=== PATIENT | female | born 1950 | race Caucasian/White ===

== ENCOUNTER → 2016-09-17 | Outpatient (CLI) | payer BC ==
[~2016-09-17] MED LIST: CIPR-255 PO; FLUO1TAB12 PO; LEVO50TA PO
--- NOTE | 2016-09-17 15:09 | DIAGNOSTIC IMAGING REPORT ---
LEFT FEMUR 4 VIEWS CLINICAL HISTORY: Left femur pain status post trauma COMPARISON: None. DISCUSSION: No fractures or dislocations are visualized. IMPRESSION: No fractures identified. Electronically signed by: Gwyn Garcia M.D. 09/17/2016 3:08 PM Dictated Date/Time: 09/17/2016 3:07 PM
--- NOTE | 2016-09-17 15:11 | DIAGNOSTIC IMAGING REPORT ---
LEFT KNEE 1 OR 2 VIEWS ROUTINE CLINICAL HISTORY: LEFT FOOT PAIN, LEFT KNEE INJURY pain COMPARISON: None. DISCUSSION: The bones and joint spaces appear intact. There is no evidence of fracture, dislocation or bony disease. There is no evidence for soft tissue swelling. IMPRESSION: Negative study. Electronically signed by: Teofilo Mishra M.D. 09/17/2016 3:10 PM Dictated Date/Time: 09/17/2016 3:10 PM
--- NOTE | 2016-09-17 15:12 | DIAGNOSTIC IMAGING REPORT ---
LEFT FOOT MIN 3 VIEWS ROUTINE CLINICAL HISTORY: LEFT FOOT PAIN, LEFT KNEE INJURY trauma COMPARISON: None. DISCUSSION: Bunion deformity distal first metatarsal. Mild hallux valgus configuration. Mild degenerative change of the interphalangeal joints. No evidence for acute bony pathology. Cortical margins are intact. There is no evidence for soft tissue swelling. IMPRESSION: Moderate degenerative change. No acute bony abnormality. Electronically signed by: Teofilo Mishra M.D. 09/17/2016 3:11 PM Dictated Date/Time: 09/17/2016 3:10 PM
== END | disposition home or self-care (01) ==
LOC: C.RAD 14:12
PROVIDERS: ATTEND Family Medicine
DX: S69.92XA Unspecified injury of left wrist, hand and finger(s), initial encounter (principal); X58.XXXA Exposure to other specified factors, initial encounter; M79.672 Pain in left foot

== ENCOUNTER → 2016-10-07 | Outpatient (CLI) | payer BC | END | disposition home or self-care (01) | LOC: C.MAMM 15:28 | PROVIDERS: ATTEND Family Medicine | DX: Z78.0 Asymptomatic menopausal state (principal); M85.89 Other specified disorders of bone density and structure, multiple sites ==

== ENCOUNTER → 2017-08-03 | Day surgery (SDC) | payer BC ==
[2017-07-31 08:24] VITALS: Ht 176.5 cm; Wt 86.4 kg
[~2017-08-03] VITALS: Ht 176.5 cm; Wt 86.4 kg
[~2017-08-03] MED LIST changes: +500ML BSSPLUS 0.5ML EPI1:1000 IRRIG ONE; +ACET-1256 PO; +ACETAMINOPHEN 325 MG TAB PO PRN; +ATROPINE SULFATE 0.1 MG/ML 5ML SYR IV PRN; +BSS FLUSH ONE; +BUPIVACAINE HCL 0.75% 10 ML AMP/VIAL ONE; +CEFAZOLIN SOD 1 GM VIAL ONE; -CIPR-255 PO; +DEXAMETHASONE SOD INJ 4 MG/ML VIAL ONE; +EpHEDrine SULFATE INJ 50 MG/ML AMP IV PRN; +EpINEphrine INJ 1MG/ML AMP 1 MG/ML AMP ONE; +FENTANYL CITRATE INJ 50 MCG/1 ML 2 ML VIAL ONE; -FLUO1TAB12 PO; +FLUO40CA8 PO; +HYALURONIDASE HUMAN 150 UNIT/ML INJ ONE; +INDOCYANINE GREEN 25 MG/10 ML ONE; +LACTATED RINGER'S 1000ML 500 ML IV SCH; +LIDOCAINE HCL 2% 2 ML VIAL (20MG/ML) ONE; +MIDAZOLAM HCL 1 MG/ML 2ML VIAL ONE; +NEOMYCIN/POLYMYX/DEXAMETH OP OINT PER APP CHARGE ONE; +OCUCOAT 1 ML SOLN IO ONE; +ONDANSETRON INJ 2 MG/ML 2 ML VIAL ONE; +POVIDONE-IODINE OP SOLN (SURGERY CNTR CHARGING ONLY) ONE; +PROPARACAINE 0.5% OP SOLN PER DROP CHARGE OPL SCH; +PROPOFOL IV EMULSION 10 MG/ML 20 ML VIAL IV ONE; +RANI150T85 PO; +TIMOLOL MALEATE 0.5% OP SOLN PER DROP CHARGE ONE; +TRIAMCINOLONE ACETONIDE OPHTH 40 MG/ML VIAL STERILE IO ONE
[2017-08-03] MEDS: PHENYLEPHRINE HCL 2.5% OP SOLN PER DROP CHARGE OPL SCH ×2 (06:43→06:48)
[2017-08-03] MEDS: TROPICAMIDE 1% OP SOLN PER DROP CHARGE OPL SCH ×2 (06:44→06:49)
--- NOTE | 2017-08-03 07:03 | History & Physical Bridge - [place] ---
H&P Re-Evaluation Bridge Note: Pt has a macular hole left eye and is having vitrectomy left eye. I have examined the patient, reviewed the History & Physical and in the interval since the performance of the History & Physical I have noted the following changes of clinical significance: No changes noted
--- NOTE | 2017-08-03 08:09 | [facility] Operative Report ---
Operative Report Date of Service Aug 03, 2017. Operative Report PREOPERATIVE DIAGNOSIS: Macular hole, left eye. ICD10 CODE: H35.342 POSTOPERATIVE DIAGNOSIS: same. PROCEDURE: 1. Pars plana vitrectomy, 23 gauge. 2. Membrane peeling of the internal limiting membrane. 3. Fluid-air exchange. 4. Air-gas exchange w/ SF6 20 %. All to the left eye. CPT CODE: 73215 SURGEON: Floyd Menjivar D.O. COMPLICATIONS: None. ESTIMATED BLOOD LOSS: None. SPECIMENS: None. ANESTHESIA: Retrobulbar block and MAC. INDICATIONS FOR PROCEDURE: The patient has a macular hole that is visually significant. Vitrectomy surgery is indicated to decrease risk of vision loss and potentially improve vision. CONSENT: The risks, benefits and alternatives were discussed with the patient including but not limited to decreased visual acuity, failure to achieve desired results, loss of the eye, infection, pain, glaucoma, lens changes, retinal tears, retinal detachment, the need for more procedures, drooping of the eyelid, blindness, and double vision. The patient is aware of risks and consents to the surgery. Consent is signed and on the chart. OPERATION AND FINDINGS: The patient was brought to the operating room where the patient was identified by name, date, and medical record number. The surgical site was confirmed with the informed written consent. The patient was sedated by the anesthesiology team after which a 50:50 mixture of 2% lidocaine and 0.75% bupivacaine with hyaluronidase was administered in a standard retrobulbar fashion. A total of 4 ml was administered without difficulty. The patient was then prepped and draped in the usual sterile manner for retinal surgery. A wire lid speculum was placed and an Cory 23-gauge trocar cannula system was employed. The inferior temporal trocar cannula was first placed in an angled fashion 3.75mm posterior to the surgical limbus and the infusion cannula was inserted into this cannula after which the intravitreal position was verified prior to turning the infusion on. Two more trocar cannulas were then inserted in an angled fashion, one in the superior temporal, and one in the superior nasal quadrant both 3.75mm posterior to the surgical limbus. A light pipe and vitrector were then introduced into the eye and the BIOM wide angle viewing system was brought into place. Standard core vitrectomy was performed and the vitreous was insured to be totally detached from the posterior pole with the aid of the vitrector. Next 0.05ml of indocyanine green was placed over the macular surface to stain the internal limiting membrane. This was washed from the eye after 10 seconds. At this point a flat contact lens was placed on the surface of the eye and a flex scraper and ILM forceps were then used to gently peel the internal limiting membrane and overlying epiretinal membrane surrounding the macular hole without difficulty. At this point scleral depression was performed for 360 degrees and no retinal tears or detachments were noted. A soft tip cannula was used to perform a fluid- air exchange. Next, SF6 20% was injected in through the infusion cannula for a complete gas fill of the eye. The trocar cannulas were then removed and found to be air tight. The intraocular pressure was found to be within normal limits by palpation and subconjunctival injections of Kefzol and dexamethasone were administered inferiorly and superiorly. The wire lid speculum was removed. Maxitrol and timolol were applied to the surface of the eye. A light patch and shield were taped over the surface of the eye and the patient left the Operating Room in stable condition having tolerated the procedure well. DISPOSITION: A gas bracelet was placed on the patients wrist. The patient was instructed to maintain a face down position overnight. The patient is to call immediately if there are any problems overnight. I attest to the content of the Intraoperative Record and any orders documented therein. Any exceptions are noted below.
[2017-08-03 08:11] VITALS: TEMP 36.4
--- NOTE | 2017-08-03 08:11 | Discharge Instructions-SurgCtr ---
Discharge Instructions Date of Service Aug 03, 2017. Visit Reason for Visit: Left Eye Macular Hole Discharge Discharge Diagnosis / Problem: same Discharge Goals Goal(s): Improve function Activity Recommendations Activity Limitations: per Instructions/Follow-up section Anesthesia . Post Anesthesia Instructions: If you have had General Anesthesia or IV Sedation: * Do not drive today. * Resume driving when surgeon permits. * Do not make important decisions or sign legal documents today. * Call surgeon for: 1. Temperature elevations greater than 101 degrees F. 2. Uncontrollable pain. 3. Excessive bleeding. 4. Persistent nausea and vomiting. 5. Medication intolerance (nausea, vomiting or rash). * For nausea and vomiting use only clear liquids such as: tea, soda, bouillon until nausea subsides, then gradually increase diet as tolerated. * If you have any concerns or questions, call your surgeon's office. If physician is unavailable and it is an emergency, call 911 or go to the nearest emergency room. . Instructions / Follow-Up Instructions / Follow-Up * May take Tylenol if needed for discomfort. * Do NOT lay flat on back and position head as follows: Face forward, chin down , right side down; Sleep on right side. * Do NOT remove green bracelet until instructed to do so by your surgeon and follow these precautions: * No air travel * No travel above 2500 feet * No nitrous oxide (N2O). * Do NOT remove eye shield. * NO straining, heavy lifting (>15 pounds) or bending below waist. * Avoid getting water or soap directly into operative eye. * Do NOT rub eye. If you experience increasing eye pain not relieved by medication, please contact us immediately at [phone]. If you are unable to reach someone at the above number, call [phone] and ask to speak with the EYE DOCTOR STAFF READINESS OFFICER. Inform them that you are a Dr. Menjivar patient who had recent surgery. Diet Recommendations Home Diet: resume previous diet Procedures Procedures Performed: Left Eye 23 Gauge Vitrectomy, Membrane Peeling, SF6 gas instillation Pending Studies Studies pending at discharge: no Medical Emergencies . Who to Call and When: Medical Emergencies: If at any time you feel your situation is an emergency, please call 911 immediately. . Non-Emergent Contact Non-Emergency issues call your: [facility] . . "Provider Documentation" section prepared by Floyd Menjivar. .
--- NOTE | 2017-08-03 08:13 | Anesthesia Progress Nt - [facility] ---
Anesthesia Post Op Note Date & Time Aug 03, 2017 at 08:13 Vital Signs Pain Intensity: 3 Vital Signs Past 12 Hours Date Time Temp Pulse Resp B/P (MAP) Pulse Ox O2 Delivery O2 Flow Rate FiO2 08/03/17 06:28 36.4 74 18 128/75 (92) 98 Room Air Notes Mental Status: alert / awake / arousable, participated in evaluation Pt Amnestic to Procedure: Yes Nausea / Vomiting: adequately controlled Pain: adequately controlled Airway Patency, RR, SpO2: stable & adequate BP & HR: stable & adequate Hydration State: stable & adequate Anesthetic Complications: no major complications apparent
[2017-08-03 08:40] VITALS: BP 119/74; PULSE 66; O2SAT 96
== END | disposition home or self-care (01) ==
LOC: X.SURG 06:10
PROVIDERS: ATTEND Ophthalmology
DX: H35.342 Macular cyst, hole, or pseudohole, left eye (principal); K21.9 Gastro-esophageal reflux disease without esophagitis; E03.9 Hypothyroidism, unspecified; F32.9 Major depressive disorder, single episode, unspecified; Z88.2 Allergy status to sulfonamides; Z82.49 Family history of ischemic heart disease and other diseases of the circulatory system; Z83.3 Family history of diabetes mellitus

== ENCOUNTER 2017-11-09 20:08 | Emergency (ER) | payer BC ==
[~2017-11-09] VITALS: Ht 175.3 cm; Wt 88.3 kg
[~2017-11-09 20:08] MED LIST changes: -500ML BSSPLUS 0.5ML EPI1:1000 IRRIG ONE; -ACETAMINOPHEN 325 MG TAB PO PRN; -ATROPINE SULFATE 0.1 MG/ML 5ML SYR IV PRN; -BSS FLUSH ONE; -BUPIVACAINE HCL 0.75% 10 ML AMP/VIAL ONE; -CEFAZOLIN SOD 1 GM VIAL ONE; -DEXAMETHASONE SOD INJ 4 MG/ML VIAL ONE; -EpHEDrine SULFATE INJ 50 MG/ML AMP IV PRN; -EpINEphrine INJ 1MG/ML AMP 1 MG/ML AMP ONE; -FENTANYL CITRATE INJ 50 MCG/1 ML 2 ML VIAL ONE; -HYALURONIDASE HUMAN 150 UNIT/ML INJ ONE; -INDOCYANINE GREEN 25 MG/10 ML ONE; -LACTATED RINGER'S 1000ML 500 ML IV SCH; -LIDOCAINE HCL 2% 2 ML VIAL (20MG/ML) ONE; -MIDAZOLAM HCL 1 MG/ML 2ML VIAL ONE; -NEOMYCIN/POLYMYX/DEXAMETH OP OINT PER APP CHARGE ONE; -OCUCOAT 1 ML SOLN IO ONE; -ONDANSETRON INJ 2 MG/ML 2 ML VIAL ONE; -POVIDONE-IODINE OP SOLN (SURGERY CNTR CHARGING ONLY) ONE; -PROPARACAINE 0.5% OP SOLN PER DROP CHARGE OPL SCH; -PROPOFOL IV EMULSION 10 MG/ML 20 ML VIAL IV ONE; -TIMOLOL MALEATE 0.5% OP SOLN PER DROP CHARGE ONE; -TRIAMCINOLONE ACETONIDE OPHTH 40 MG/ML VIAL STERILE IO ONE
[2017-11-09 20:21] VITALS: TEMP 36.7; Ht 175.3 cm; Wt 88.3 kg
[2017-11-09] MEDS ORDERED: MECLIZINE HCL 25 MG TAB PO STA (21:07)
[2017-11-09] MEDS ORDERED: ONDANSETRON INJ 2 MG/ML 2 ML VIAL IV STA (21:07)
[2017-11-09] MEDS ORDERED: OPTIRAY 320 IV PRN (21:15)
[2017-11-09 21:23] LABS: BASO % 0.5 %; BASO ABS # 0.03 K/uL (0-0.2); EOS % 2.2 %; EOS ABS # 0.14 K/uL (0-0.5); HEMATOCRIT 41.3 % (37-47); IG# 0.01 K/uL (0.00-0.02); LYMPH % 27.3 %; LYMPH ABS # 1.75 K/uL (1.2-3.4); MEAN CELL VOLUME 96.9 fL (80-100); MEAN CORPUSCULAR HEMOGLOBIN 32.9 pg (25-34); MEAN CORPUSCULAR HGB CONC 33.9 g/dl (32-36); MEAN PLATELET VOLUME 11.6 fL (7.4-10.4); MONO % 10.6 %; MONO ABS # 0.68 K/uL (0.11-0.59); NEUT % 59.2 %; NEUT ABS # 3.81 K/uL (1.4-6.5); PLATELET COUNT 262 K/uL (130-400); RED CELL DISTRIBUTION WIDTH CV 13.5 % (11.5-14.5); RED CELL DISTRIBUTION WIDTH SD 47.8 fL (36.4-46.3); WHITE BLOOD COUNT 6.42 K/uL (4.8-10.8)
[2017-11-09 21:52] LABS: CALCIUM 9.3 mg/dl (8.5-10.1); CREATININE 0.95 mg/dl (0.60-1.20); POTASSIUM 3.9 mmol/L (3.5-5.1)
--- NOTE | 2017-11-09 22:41 | DIAGNOSTIC IMAGING REPORT ---
Brain MRA HISTORY: severe dizziness, headaches TECHNIQUE: 3-D [id number] MRA of the brain was performed without contrast. COMPARISON STUDY: None. FINDINGS: Visualized intracranial internal carotid arteries, distal vertebral arteries, and basilar artery are widely patent. There is no significant stenosis or occlusion seen within the bilateral ACAs, MCAs, or pcat instructor. Best seen on axial image 122 there is a 3 mm aneurysm extending posteriorly from the ophthalmic segment of the right internal carotid artery. IMPRESSION: 1. No significant stenosis or occlusion within the cerebral arteries. 2. 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 Electronically signed by: Gaudencio Aguirre M.D. 11/09/2017 10:40 PM Dictated Date/Time: 11/09/2017 10:35 PM
--- NOTE | 2017-11-09 22:49 | DIAGNOSTIC IMAGING REPORT ---
Brain MRI WITHOUT CONTRAST HISTORY: severe dizziness, headaches TECHNIQUE: Multiplanar multisequence MRI of the brain was performed without the use of contrast. COMPARISON STUDY: None. FINDINGS: There is no mass, hematoma, midline shift, or acute infarct. The paranasal sinuses are clear. The mastoid air cells are clear. The ventricles and sulci demonstrate mild age-related involutional changes. Scattered foci of T2 hyperintensity seen within the periventricular and subcortical white matter are nonspecific but suggestive of mild microvascular ischemic changes. The major vascular flow voids at the skull base are well-maintained. IMPRESSION: No acute intracranial abnormality. Scattered foci of T2 hyperintensity seen within the periventricular and subcortical white matter are nonspecific but favor microvascular ischemic change. Electronically signed by: Gaudencio Aguirre M.D. 11/09/2017 10:47 PM Dictated Date/Time: 11/09/2017 10:40 PM
[2017-11-09] MEDS ORDERED: IBUP-1050 PO (23:24)
--- NOTE | 2017-11-09 23:24 | DIAGNOSTIC IMAGING REPORT ---
NECK MRA HISTORY: severe dizziness, headaches TECHNIQUE: [id number] and gadolinium-enhanced MRA of the neck was performed both before and after the intravenous administration of contrast. All measurements were calculated based on NASCET criteria. COMPARISON STUDY: None. FINDINGS: The aortic arch and proximal great vessels are widely patent. There is no significant stenosis, occlusion, or dissection identified within the bilateral common carotid, internal carotid, or vertebral arteries. IMPRESSION: No significant stenosis, occlusion, or dissection identified within the carotid or vertebral arteries. Electronically signed by: Gaudencio Aguirre M.D. 11/09/2017 11:23 PM Dictated Date/Time: 11/09/2017 11:20 PM
[2017-11-10] MEDS ORDERED: LIDOCAINE HCL 1% 20 ML VIAL ONE (00:50)
[2017-11-10 02:26] LABS: CSF GLUCOSE 58 mg/dl (40-70); CSF TOTAL PROTEIN 31.4 mg/dl (15.0-45.0)
[2017-11-10] MEDS ORDERED: MECLIZINE HCL 25MG HOME PACK PO ONE (02:30)
[2017-11-10] MEDS ORDERED: MECL1TAB42 PO (02:32)
[2017-11-10 02:47] VITALS: BP 126/69; PULSE 72; O2SAT 100
--- NOTE | 2017-11-10 04:13 | EMERGENCY ROOM VISIT NOTE ---
History Report prepared by Ciarra: Jewell Walsh Under the Supervision of: Dr. Osmin Shaw M.D. First contact with patient: 20:49 Chief Complaint: VERTIGO Stated Complaint: VERTIGO,VOMITING,DIZZINESS,HEADACHES History of Present Illness The patient is a 67 year old female who presents to the Emergency Room with complaints of worsening vertigo that started yesterday. The patient states that she started experiencing headaches, dizziness, and pressure behind her ears 3 days ago. She does not recall doing anything out of the ordinary before her symptoms started. Since then, she notes that she has been having intermittent dizziness and headaches that occur in the morning and tend to go away an hour after taking Ibuprofen. The patient states she felt very queasy yesterday and called her PCP Dr. Stoner this morning because her symptoms were the worst they had been since their onset. She states that she was instructed to report to the ED. The patient reports that she is currently feeling dizzy and rates her headache pain a 5 out of 10. She reports that she has took Aleve prior to arrival to help her dizziness. The patient also complains of lightheadedness and nausea, and she notes she feels like the room is "spinning." She states her symptoms worsen with quick head movements and the act of lying down. 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 She notes she also has a history of "being a little unsteady on my feet." The patient states she is not currently taking blood thinners. Pt denies LOC, fevers, chills, diaphoresis, visual changes, neck pain, chest pain, breathing difficulties, vomiting, abdominal pain, back pain, melena, hematochezia, urinary symptoms, numbness, weakness, lymphadenopathy, rash, or other complaints. Source of History: patient Onset: 3 days ago Position: head Quality: other (vertigo) Timing: intermittent Modifying Factors (Worsening): movement (quick head movements, the act of lying down) Modifying Factors (Relieving): ibuprofen Associated Symptoms: + headache, + nausea Note: additional symptoms: dizziness, lightheadedness, pressure behind her ears Review of Systems See HPI for pertinent positives and negatives. A total of ten systems were reviewed and were otherwise negative. 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 (2) Depression Surgical Problems: (1) S/P cholecystectomy (2) S/P hysterectomy Family History No pertinent family history Social History Smoking Status: Never Smoker Marital Status: Housing Status: lives with family Current/Historical Medications Scheduled Fluoxetine Hcl (Prozac), 40 MG PO QAM Levothyroxine Sodium (Synthroid), 50 MCG PO QAM Ranitidine (Zantac), 150 MG PO BID Scheduled PRN Acetaminophen (Tylenol), 500 MG PO DAILY PRN for Pain Ibuprofen (Advil), 200-600 MG PO Q4H PRN for Pain or Fever Meclizine Hcl (Meclizine Hcl), 25 MG PO TID PRN for Dizziness Allergies Coded Allergies: Sulfa Drugs (Verified Allergy, Unknown, HIVES, 11/09/17) Physical Exam Vital Signs Date Time Temp Pulse Resp B/P (MAP) Pulse Ox O2 Delivery O2 Flow Rate FiO2 11/10/17 02:47 72 16 126/69 100 11/10/17 02:00 67 18 118/61 98 Room Air 11/10/17 01:49 81 11/10/17 00:15 79 16 129/71 98 Room Air 11/09/17 23:20 76 13/84 74 155/90 82 164/96 11/09/17 21:45 74 11/09/17 20:21 36.7 86 18 145/79 98 Room Air Physical Exam GENERAL: Awake, alert, well appearing, no distress HENT: Normocephalic, atraumatic. TM's normal. Oropharynx unremarkable. EYES: PERRL. EOMI. Normal conjunctiva. Sclera non-icteric. NECK: Supple. No nuchal rigidity. FROM. No bruit. RESPIRATORY: Breath sounds equal. No wheezes. No rhonchi. Normal respiratory effort. CARDIAC: Normal rate. Regular rhythm. No murmurs. No rubs. No JVD. GI: Soft, non distended. No tenderness to palpation. No rebound or guarding. No masses. RECTAL: Deferred. MUSCULOSKELETAL: No edema. No discoloration. Gross motor strength symmetric. Normal internal and external rotation in left hip. Slight weakness of right EHL. NEURO: Cranial nerves 2-12 grossly intact. Normal sensorium. No sensory or motor deficits noted. Speech normal. No pronator drift. Lateral nystagmus. Normal heel to severino. Normal rapid alternating movements. Positive [place]. SKIN: No rash or jaundice noted. LYMPH: No adenopathy. Medical Decision & Procedures ER Provider Diagnostic Interpretation: Radiology results as stated below per my review and radiologist interpretation: NECK MRA HISTORY: severe dizziness, headaches TECHNIQUE: [id number] and gadolinium-enhanced MRA of the neck was performed both before and after the intravenous administration of contrast. All measurements were calculated based on NASCET criteria. COMPARISON STUDY: None. FINDINGS: The aortic arch and proximal great vessels are widely patent. There is no significant stenosis, occlusion, or dissection identified within the bilateral common carotid, internal carotid, or vertebral arteries. IMPRESSION: No significant stenosis, occlusion, or dissection identified within the carotid or vertebral arteries. Electronically signed by: Gaudencio Aguirre M.D. 11/09/2017 11:23 PM Dictated Date/Time: 11/09/2017 11:20 PM Brain MRA HISTORY: severe dizziness, headaches TECHNIQUE: 3-D [id number] MRA of the brain was performed without contrast. COMPARISON STUDY: None. FINDINGS: Visualized intracranial internal carotid arteries, distal vertebral arteries, and basilar artery are widely patent. There is no significant stenosis or occlusion seen within the bilateral ACAs, MCAs, or power and recovery supervisor. Best seen on axial image 122 there is a 3 mm aneurysm extending posteriorly from the ophthalmic segment of the right internal carotid artery. IMPRESSION: 1. No significant stenosis or occlusion within the cerebral arteries. 2. 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 Electronically signed by: Gaudencio Aguirre M.D. 11/09/2017 10:40 PM Dictated Date/Time: 11/09/2017 10:35 PM Brain MRI WITHOUT CONTRAST HISTORY: severe dizziness, headaches TECHNIQUE: Multiplanar multisequence MRI of the brain was performed without the use of contrast. COMPARISON STUDY: None. FINDINGS: There is no mass, hematoma, midline shift, or acute infarct. The paranasal sinuses are clear. The mastoid air cells are clear. The ventricles and sulci demonstrate mild age-related involutional changes. Scattered foci of T2 hyperintensity seen within the periventricular and subcortical white matter are nonspecific but suggestive of mild microvascular ischemic changes. The major vascular flow voids at the skull base are well-maintained. IMPRESSION: No acute intracranial abnormality. Scattered foci of T2 hyperintensity seen within the periventricular and subcortical white matter are nonspecific but favor microvascular ischemic change. Electronically signed by: Gaudencio Aguirre M.D. 11/09/2017 10:47 PM Dictated Date/Time: 11/09/2017 10:40 PM Laboratory Results 11/09/17 21:12 Red Blood Count 4.26, Mean Corpuscular Volume 96.9, Mean Corpuscular Hemoglobin 32.9, Mean Corpuscular Hemoglobin Concent 33.9, Mean Platelet Volume 11.6, Neutrophils (%) (Auto) 59.2, Lymphocytes (%) (Auto) 27.3, Monocytes (%) (Auto) 10.6, Eosinophils (%) (Auto) 2.2, Basophils (%) (Auto) 0.5, Neutrophils # (Auto ) 3.81, Lymphocytes # (Auto) 1.75, Monocytes # (Auto) 0.68, Eosinophils # (Auto ) 0.14, Basophils # (Auto) 0.03 11/09/17 21:12 Test 11/09/17 21:12 11/10/17 02:03 White Blood Count 6.42 K/uL (4.8-10.8) Red Blood Count 4.26 M/uL (4.2-5.4) Hemoglobin 14.0 g/dL (12.0-16.0) Hematocrit 41.3 % (37-47) Mean Corpuscular Volume 96.9 fL (80-100) Mean Corpuscular Hemoglobin 32.9 pg (25-34) Mean Corpuscular Hemoglobin Concent 33.9 g/dl (32-36) Platelet Count 262 K/uL (130-400) Mean Platelet Volume 11.6 fL (7.4-10.4) Neutrophils (%) (Auto) 59.2 % Lymphocytes (%) (Auto) 27.3 % Monocytes (%) (Auto) 10.6 % Eosinophils (%) (Auto) 2.2 % Basophils (%) (Auto) 0.5 % Neutrophils # (Auto) 3.81 K/uL (1.4-6.5) Lymphocytes # (Auto) 1.75 K/uL (1.2-3.4) Monocytes # (Auto) 0.68 K/uL (0.11-0.59) Eosinophils # (Auto) 0.14 K/uL (0-0.5) Basophils # (Auto) 0.03 K/uL (0-0.2) RDW Standard Deviation 47.8 fL (36.4-46.3) RDW Coefficient of Variation 13.5 % (11.5-14.5) Immature Granulocyte % (Auto) 0.2 % Immature Granulocyte # (Auto) 0.01 K/uL (0.00-0.02) Erythrocyte Sedimentation Rate 8 mm/hr (0-21) Prothrombin Time 10.0 SECONDS (9.0-12.0) Prothromb Time International Ratio 1.0 (0.9-1.1) Activated Partial Thromboplast Time 26.0 SECONDS (21.0-31.0) Partial Thromboplastin Ratio 1.0 Anion Gap 8.0 mmol/L (3-11) Est Creatinine Clear Calc Drug Dose 66.2 ml/min Estimated GFR () 70.8 Estimated GFR (Non- 61.1 BUN/Creatinine Ratio 21.2 (10-20) Calcium Level 9.3 mg/dl (8.5-10.1) Lyme Disease IgG Antibody NEG (NEG) Lyme Disease IgM Antibody NEG (NEG) CSF Color COLORLESS CSF Appearance CLEAR CSF WBC 2 /uL (0-5) CSF RBC 4 /uL (0) CSF Xanthrochromic NO XANTHOCHROMIA CSF Cell Count Tube # 4 CSF Chemistry Tube # 2 CSF Glucose 58 mg/dl (40-70) CSF Total Protein 31.4 mg/dl (15.0-45.0) Laboratory results reviewed by me Medications Administered Medications (Trade) Dose Ordered Sig/La Route Start Time Stop Time Status Last Admin Dose Admin Ondansetron HCl (Zofran Inj) 4 mg NOW STAT IV 11/09/17 21:07 11/09/17 21:14 DC 11/09/17 21:23 4 MG Meclizine HCl (Antivert Tab) 25 mg NOW STAT PO 11/09/17 21:07 11/09/17 21:14 DC 11/09/17 21:23 25 MG Meclizine HCl (Antivert 25MG Home Pack) 1 homepack UD ONCE PO 11/10/17 02:30 11/10/17 02:31 DC 11/10/17 02:41 1 HOMEPACK Procedure Lumbar Puncture Indication: Headache and aneurysm. Verbal consent was obtained after the risks and benefits were explained, including but not limited to headache, bleeding/clotting, scarring, infection, pain, and bone/joint/nerve damage. At this time, the risks of the procedure are less than the risks of NOT performing the procedure. A time out was taken and the correct patient and site identified. The patient was placed in the left lateral decubitus position and the back was prepped with betadine and draped in the standard fashion. The L3 intervertebral space was identified, anesthetized locally with 1% lidocaine without epinephrine, and the spinal needle was inserted through the skin with the bevel parallel to the dural fibers. The needle was carefully advanced into the lumbar cistern and 4 tubes of clear CSF was obtained. The stylet was replaced and the needle was removed. A bandaid was placed and the patient was placed in the supine position. The patient tolerated the procedure well and there were no complications. ECG Per My Interpretation Indication: other (dizziness) Rate (beats per minute): 71 Rhythm: normal sinus Findings: no acute ischemic change, no ectopy, other (no PAC, no PVC) ED Course 2052: The patient was evaluated in room A11B. A complete history and physical exam was performed. 2106: Ordered Antivert Tab 25 mg PO, Zofran Inj 4 mg IV. 6: I performed a lumbar puncture on the patient. 229: Ordered Meclizine HCl 1 homepack PO. 7: I reevaluated the patient. Discussed results and discharge instructions. She verbalized understanding and agreement. The patient is ready for discharge. Medical Decision Prior records/ancillary studies reviewed. Triage Nursing notes reviewed and agree them. The patient's history was concerning for dizziness and headache. Differential diagnosis: Etiologies such as benign positional vertigo, tumor, infection, hypoglycemia, electrolyte abnormalities, cardiac sources, intracerebral event, toxicologic, neurologic, SAH, dissection, as well as others were entertained. Physical examination: As above. No pathologic nystagmus. ER treatment provided: IV Zofran Oral meclizine On reassessment the patient felt well. Diagnostics interpretation by me: ECG: Normal sinus rhythm without ischemic change or evidence of dysrhythmia. Laboratory studies: The labs revealed a normal CBC and unremarkable chemistry panel. Imaging studies: MRIs as above The patient presented complaining of dizziness. She also had intermittent headaches which were atypical for her. Because of this the patient was treated with meclizine and Zofran. She underwent MR imaging. This did not reveal any evidence of tumor, stroke, dissection or any posterior circulation findings. She did have an aneurysm noted on the right ophthalmic branch of the internal carotid artery. Because of the unusual headaches and the finding of this aneurysm the patient underwent lumbar puncture. There was no evidence of xanthochromia. She had no significant red blood cells or white blood cells present in the CSF to consider subarachnoid hemorrhage, encephalitis or meningitis. This seems to be consistent with a peripheral vertigo. While she was having the headaches is still somewhat of a mystery. I discussed conservative management with her and her significant other. They both felt very comfortable. The patient was referred back to her primary physician. She will follow-up for the dizziness as well as for monitoring and additional consultation regarding the aneurysm. At this point this seems to be an incidental finding. I gave my usual and customary discussion regarding this issue. She was given a home pack of meclizine and a prescription was sent to her pharmacy for more if necessary. By the evaluation outlined above other emergent etiologies such as those listed in the differential, as well as others, were deemed relatively unlikely. The patient was educated about the findings as listed above. All questions were answered and the patient was pleased with the treatment. Return instructions were outlined and the patient was discharged in stable condition. Medication Reconcilliation Current Medication List: was personally reviewed by me Blood Pressure Screening Patient's blood pressure: Normal blood pressure Blood pressure disposition: Did not require urgent referral Impression Primary Impression: Dizziness Additional Impressions: Vertigo Aneurysm of ophthalmic artery Scribe Attestation The scribe's documentation has been prepared under my direction and personally reviewed by me in its entirety. I confirm that the note above accurately reflects all work, treatment, procedures, and medical decision making performed by me. Departure Information Dispostion Home / Self-Care Prescriptions Meclizine Hcl (MECLIZINE HCL) 25 Mg Tab 25 MG PO TID Y for Dizziness, #21 TAB Prov: Osmin Shaw MD 11/10/17 Referrals Alysa Stoner D.O. (PCP) Forms HOME CARE DOCUMENTATION FORM, IMPORTANT VISIT INFORMATION, WORK / SCHOOL INSTRUCTIONS Patient Instructions My [facility] Additional Instructions DIZZINESS INSTRUCTIONS: DO NOT drive, drink alcohol, operate machinery, or perform dangerous activities today. You were given medications in the ER that can affect your ability to safely function or operate a vehicle. You should not drive or perform any dangerous activities until your symptoms resolve. Meclizine 25mg: Take 1 pill every 8 hours as needed for dizziness or vertigo. Avoid alcohol, operating machinery or dangerous equipment, working on ladders or roofs, DRIVING, or situations where being under the influence may be dangerous Tylenol: Take 1000 mg every 6 hours as needed for pain. Do not take more than 3000 mg in a 24 hour period. Rest and drink plenty of fluids as tolerated. Continue current medications. Return to the ER immediately for worsening or persistent dizziness, vomiting, headache, fevers, chest pains, difficulty breathing, black or bloody stools, slurred speech, numbness, weakness, visual changes, worsening of your condition , or as needed. Follow up with your primary physician in 1-2 days for a recheck of your current condition. Problem Qualifiers
== END 2017-11-10 02:45 | disposition home or self-care (01) ==
LOC: C.EDB 20:08 → C.EDA 11-10 02:45
DX: R42 Dizziness and giddiness (principal); I72.0 Aneurysm of carotid artery; F32.9 Major depressive disorder, single episode, unspecified; Z79.899 Other long term (current) drug therapy; Z88.2 Allergy status to sulfonamides